=== PATIENT | female | born 1985 | race Two or more races ===

== ENCOUNTER 2018-07-08 14:16 | Outpatient (CLI) | payer OTHER | END 2018-07-08 14:33 | disposition home or self-care (01) | LOC: SONOGRAMA 14:16 | DX: Z34.00 Encounter for supervision of normal first pregnancy, unspecified trimester (principal); D25.9 Leiomyoma of uterus, unspecified ==

== ENCOUNTER 2018-11-11 21:41 | Outpatient (CLI) | payer OTHER ==
[2018-11-11] MEDS ORDERED: PRENATAL VITAM1 EAC5 PO (22:05)
[2018-11-12] MEDS ORDERED: IRON325 MG PO (13:50)
== END 2018-11-12 15:38 | disposition home or self-care (01) ==
LOC: OBS/DEL 21:41
DX: O46.8X2 Other antepartum hemorrhage, second trimester (principal); Z34.02 Encounter for supervision of normal first pregnancy, second trimester; O99.012 Anemia complicating pregnancy, second trimester; D64.89 Other specified anemias

== ENCOUNTER 2019-01-13 11:25 | Inpatient (IN) | payer OTHER ==
[~2019-01-13] VITALS: Ht 170.2 cm; Wt 220.0 kg
[~2019-01-13 11:25] MED LIST: IRON325 MG PO; PRENATAL VITAM1 EAC5 PO
== END 2019-02-10 11:30 | disposition home or self-care (01) | DRG 807 ==
LOC: LDR 02-06 14:30 → OB/GYN 02-07 23:38
PROVIDERS: ADMIT Specialist
PROC: 4A1HXCZ Monitoring of Products of Conception, Cardiac Rate, External Approach (ICD-10-PCS; 2019-02-07)
PROC: 10E0XZZ Delivery of Products of Conception, External Approach (ICD-10-PCS; principal; 2019-02-08)
PROC: 0W8NXZZ Division of Female Perineum, External Approach (ICD-10-PCS; 2019-02-08)
DX: O80 Encounter for full-term uncomplicated delivery (principal); Z37.0 Single live birth; Z3A.37 37 weeks gestation of pregnancy